=== PATIENT | female | born 1960 | race Hispanic/Latino ===

== ENCOUNTER → 2018-05-22 | Outpatient (CLI) | payer OTHER | END | disposition home or self-care (01) | LOC: OIH 14:09 | PROVIDERS: ATTEND Internal Medicine | DX: Z13.6 Encounter for screening for cardiovascular disorders (principal) | CPT/HCPCS: 75571 ==

== ENCOUNTER → 2022-01-15 | Outpatient (CLI) | payer OTHER ==
[2022-01-15 12:44] LABS: HEMOGLOBIN A1C 5.8 % (4.0-6.0)
[2022-01-15 12:58] LABS: CREATININE 0.6 mg/dL (0.5-1.5); POTASSIUM 3.7 mmol/L (3.5-5.1); TOTAL PROTEIN, SERUM 7.5 g/dL (6.0-8.3)
== END | disposition home or self-care (01) ==
LOC: LAB 10:26
PROVIDERS: ATTEND Physician Assistant
DX: I10 Essential (primary) hypertension (principal); E11.9 Type 2 diabetes mellitus without complications; E78.5 Hyperlipidemia, unspecified
CPT/HCPCS: 36415; 80053; 80061; 83036

== ENCOUNTER → 2022-01-27 | Outpatient (CLI) | payer OTHER | END | disposition home or self-care (01) | LOC: RAH 13:01 | PROVIDERS: ATTEND Internal Medicine | DX: Z12.31 Encounter for screening mammogram for malignant neoplasm of breast (principal) | CPT/HCPCS: 77067 ==

== ENCOUNTER 2022-02-11 07:25 | Day surgery (SDC) | payer OTHER ==
[2022-02-05 12:57] LABS: BASOPHILS % (AUTO) 0.5 % (0.0-5.0); EOSINOPHILS % (AUTO) 1.7 % (0.0-8.0); HEMATOCRIT 36.6 % (36-48); LYMPHOCYTES % (AUTO) 20.8 % (21.0-51.0); MEAN CORPUSCULAR HGB CONC 33.3 g/dL (32.0-36.0); MEAN CORPUSCULAR VOLUME 86.9 fL (79-99); MONOCYTES % (AUTO) 4.6 % (3.0-13.0); PLATELET COUNT (AUTO) 216 K/uL (130-400); RED BLOOD CELL COUNT(AUTO) 4.21 MIL/uL (4.00-5.50); RED CELL DISTRIBUTION WIDTH 14.2 % (11.0-15.5); WHITE BLOOD COUNT (AUTO) 7.5 K/uL (4.8-10.8)
[2022-02-05 13:09] LABS: CREATININE 0.6 mg/dL (0.5-1.5); POTASSIUM 3.9 mmol/L (3.5-5.1)
[2022-02-05 13:11] LABS: INR 0.98 (0.85-1.15); PROTHROMBIN TIME 10.7 SEC (9.6-11.6)
[2022-02-05 13:17] LABS: APPEARANCE,URINE CLEAR (CLEAR); BILIRUBIN,URINE NEGATIVE (NEGATIVE); COLOR,URINE LIGHT-YELLOW (YELLOW); GLUCOSE, URINE (UA) NEGATIVE (NEGATIVE); KETONES,URINE NEGATIVE (NEGATIVE); LEUKOCYTE ESTERASE ,URINE NEGATIVE Leu/uL (NEGATIVE); NITRATE,URINE NEGATIVE (NEGATIVE); OCCULT BLOOD,URINE SMALL (NEGATIVE); PH,URINE 5.5 (5.0-8.0); PROTEIN,URINE NEGATIVE (NEGATIVE); UROBILINOGEN,URINE 0.2 mg/dL (0.2-1.0)
[2022-02-05 13:24] LABS: BACTERIA,URINE RARE /HPF (None Seen); MUCUS,URINE RARE LPF (None Seen); SQUAMOUS EPITHELIAL CELL,UR FEW /HPF (0-2); WBC,URINE 0-1 /HPF (0-1)
[2022-02-10 09:29] VITALS: BP 105/63
[2022-02-11] VITALS (17 sets, daily range): BP systolic 100–149; BP diastolic 53–95
[~2022-02-11] VITALS: Ht 165.1 cm; Wt 91.2 kg
[~2022-02-11 07:25] MED LIST: ACET-2743 PO; AEC81 PO; AMLO-257 PO; ATOR10TA69 PO; BACL10TA PO; BUSP7.5T7 PO; CEFAZOLIN SODIUM 2 GM VIAL IVPB SCH; ERGO500093 PO; GENTAMICIN 80 MG/NS 100 ML PB 100 ML IV SCH; IBUP-2077 PO; LOSA100T58 PO; METO-391 PO; PANT40TA54 PO; PREG75CA75 PO; TIRZ5PEN SQ; TRAM50TA4 PO
[2022-02-11] MEDS ORDERED: 0.9%NACL 1000ML 1,000 ML IV ONE (07:29)
[2022-02-11] MEDS ORDERED: CEFAZOLIN SODIUM 1 GM VIAL ONE (08:39)
[2022-02-11] MEDS ORDERED: ESTROGENS,CONJUGATED 0.625 MG/GM 42.5 GM VAG CRM VG ONE (08:39)
[2022-02-11] MEDS ORDERED: PROPOFOL 10 MG/ML 20ML VIAL IV ONE (10:25)
[2022-02-11] MEDS ORDERED: LIDOCAINE PF 100MG/5ML (2%) SYRINGE 5ML ONE (10:25)
[2022-02-11] MEDS ORDERED: MIDAZOLAM HCL 1 MG/ML 2ML VIAL ONE (10:26)
[2022-02-11] MEDS ORDERED: ONDANSETRON 4MG INJ ONE (10:28)
[2022-02-11] MEDS ORDERED: SUCCINYLCHOLINE CHLORIDE 20 MG/ML 10 ML VIAL ONE (10:28)
[2022-02-11] MEDS ORDERED: FENTANYL CITRATE PF 50 MCG/1 ML 2ML VIAL ONE (10:29)
[2022-02-11] MEDS ORDERED: LIDOCAINE 1%-EPI 1:100,000 20 ML VIAL IJ SCH (11:00)
[2022-02-11] MEDS ORDERED: KETOROLAC 30MG VIAL (30MG/ML) ONE (11:06)
[2022-02-11] MEDS ORDERED: PHENYLEPHRINE HCL 10 MG/ML 1ML VIAL IV ONE (11:08)
[2022-02-11] MEDS ORDERED: TRAMADOL HCL 50 MG TABLET ONE (13:39)
[2022-02-11] MEDS ORDERED: TRAMADOL HCL 50 MG TABLET PO ONE (14:30)
== END 2022-02-11 14:40 | disposition home or self-care (01) ==
LOC: DAH 07:25
PROVIDERS: ATTEND Urology
DX: N39.46 Mixed incontinence (principal); Z20.822 Contact with and (suspected) exposure to COVID-19; I10 Essential (primary) hypertension; K21.9 Gastro-esophageal reflux disease without esophagitis; E11.9 Type 2 diabetes mellitus without complications; F32.A Depression, unspecified; G47.30 Sleep apnea, unspecified; E66.9 Obesity, unspecified; Z98.890 Other specified postprocedural states; Z90.710 Acquired absence of both cervix and uterus; Z90.49 Acquired absence of other specified parts of digestive tract; Z90.722 Acquired absence of ovaries, bilateral; Z79.82 Long term (current) use of aspirin; Z79.899 Other long term (current) drug therapy; Z79.01 Long term (current) use of anticoagulants; Z88.8 Allergy status to other drugs, medicaments and biological substances; Z83.3 Family history of diabetes mellitus
CPT/HCPCS: 80048; 85025; 85610; 85730; 87088; 87426; 81001; 36415; 71045; 93005; 57288; 82948 ×2; A6260; A4221; A4663; J7030 ×2; A4215 ×2; A4452; A4344; C1771; J3010; J0690; J3490; J0330; J2001; J2250; J2704; J2405; J1885; J2370; J1580; G0168; A4649; A4930; A4223; A4222; A4600

== ENCOUNTER → 2022-06-03 | Outpatient (CLI) | payer OTHER ==
[~2022-06-03] MED LIST changes: -CEFAZOLIN SODIUM 2 GM VIAL IVPB SCH; -GENTAMICIN 80 MG/NS 100 ML PB 100 ML IV SCH
== END | disposition home or self-care (01) ==
LOC: SHCH 15:12
PROVIDERS: ATTEND Internal Medicine Cardiovascular Disease
DX: R00.2 Palpitations (principal)
CPT/HCPCS: 93306

== ENCOUNTER → 2023-01-28 | Outpatient (CLI) | payer OTHER ==
[~2023-01-28] MED LIST changes: -LOSA100T58 PO; +LOSA100T59 PO; -PREG75CA75 PO; +PREG75CA76 PO
== END | disposition home or self-care (01) ==
LOC: RAH 09:08
PROVIDERS: ATTEND Internal Medicine
DX: Z12.31 Encounter for screening mammogram for malignant neoplasm of breast (principal)
CPT/HCPCS: 77067

== ENCOUNTER → 2023-02-01 | Outpatient (CLI) | payer OTHER ==
[~2023-02-01] MED LIST changes: +ONDA4TAB10 PO
[2023-02-01 21:54] VITALS: PULSE 75; RESP 12
[2023-02-01 22:23] VITALS: PULSE 73; RESP 12
[2023-02-01 23:06] VITALS: PULSE 75; RESP 12
[2023-02-01 23:32] VITALS: PULSE 69; RESP 12
== END | disposition home or self-care (01) ==
LOC: SLP 20:33
PROVIDERS: ATTEND Internal Medicine Cardiovascular Disease
DX: G47.33 Obstructive sleep apnea (adult) (pediatric) (principal)
CPT/HCPCS: 95810; 95811

== ENCOUNTER 2023-02-02 01:12 | Emergency (ER) | payer OTHER ==
[~2023-02-02] VITALS: Ht 165.1 cm; Wt 86.6 kg
[~2023-02-02 01:12] MED LIST changes: -ONDA4TAB10 PO
[2023-02-02 01:44] LABS: BASOPHILS # (AUTO) 0.02 K/uL (0.00-0.20); BASOPHILS % (AUTO) 0.2 % (0.0-5.0); EOSINOPHILS # (AUTO) 0.02 K/uL (0.00-0.70); EOSINOPHILS % (AUTO) 0.2 % (0.0-8.0); HEMATOCRIT 40.1 % (36-48); IMMATURE GRANULOCYTE ABSOLUTE 0.05 K/uL (0-1); LYMPHOCYTES # (AUTO) 1.2 K/uL (1.0-4.8); LYMPHOCYTES % (AUTO) 13.5 % (21.0-51.0); MEAN CORPUSCULAR HEMOGLOBIN 29.4 pg (27.0-33.0); MEAN CORPUSCULAR HGB CONC 33.2 g/dL (32.0-36.0); MEAN CORPUSCULAR VOLUME 88.5 fL (79-99); MONOCYTES # (AUTO) 0.3 K/uL (0.1-1.0); NEUTROPHILS # (AUTO) 7.5 K/uL (1.8-7.7); NEUTROPHILS % (AUTO) 82.5 % (40.0-77.0); PLATELET COUNT (AUTO) 216 K/uL (130-400); RED BLOOD CELL COUNT(AUTO) 4.53 MIL/uL (4.00-5.50); RED CELL DISTRIBUTION WIDTH 15.1 % (11.0-15.5); WHITE BLOOD COUNT (AUTO) 9.1 K/uL (4.8-10.8)
[2023-02-02 01:53] LABS: CREATININE 0.7 mg/dL (0.5-1.5); POTASSIUM 3.5 mmol/L (3.5-5.1)
[2023-02-02 01:58] LABS: BILIRUBIN,TOTAL 0.8 mg/dL (0.2-1.0); TOTAL PROTEIN, SERUM 7.9 g/dL (6.0-8.3)
[2023-02-02] MEDS ORDERED: ONDANSETRON 4MG INJ ONE (02:46)
[2023-02-02] MEDS ORDERED: ONDANSETRON 4MG INJ IVP ONE (03:00)
[2023-02-02 04:25] VITALS: BP 111/93; PULSE 93; RESP 18; O2SAT 98
[2023-02-02] MEDS ORDERED: 0.9% NACL 500ML IV.SOLN 500 ML IV ONE (05:30)
[2023-02-02] MEDS ORDERED: ONDA4TAB10 PO (05:34)
== END 2023-02-02 05:50 | disposition home or self-care (01) ==
LOC: EDH 01:12
DX: R11.2 Nausea with vomiting, unspecified (principal); R19.7 Diarrhea, unspecified; E86.0 Dehydration; E11.9 Type 2 diabetes mellitus without complications; I10 Essential (primary) hypertension; Z79.82 Long term (current) use of aspirin
CPT/HCPCS: 99283; 96374; 80053; 85025; 36415; J7040; J2405

== ENCOUNTER → 2023-04-10 | Outpatient (CLI) | payer OTHER ==
[~2023-04-10] MED LIST changes: +ONDA4TAB10 PO
[2023-04-10 21:56] VITALS: PULSE 72; RESP 20
[2023-04-10 22:30] VITALS: PULSE 76; RESP 16
[2023-04-10 23:00] VITALS: PULSE 68; RESP 14
[2023-04-10 23:30] VITALS: PULSE 70; RESP 16
[2023-04-11] VITALS (10 sets, daily range): PULSE 58–74; RESP 14–20
== END | disposition home or self-care (01) ==
LOC: SLP 20:38
PROVIDERS: ATTEND Internal Medicine Cardiovascular Disease
DX: G47.33 Obstructive sleep apnea (adult) (pediatric) (principal)
CPT/HCPCS: 95810

== ENCOUNTER → 2023-04-28 | Outpatient (CLI) | payer OTHER | END | disposition home or self-care (01) | LOC: RAH 11:41 | PROVIDERS: ATTEND Internal Medicine | DX: M47.816 Spondylosis without myelopathy or radiculopathy, lumbar region (principal); M54.50 Low back pain, unspecified | CPT/HCPCS: 72100 ==

== ENCOUNTER → 2023-06-13 | Outpatient (CLI) | payer OTHER ==
[2023-06-13 22:07] VITALS: PULSE 83; RESP 17
[2023-06-13 23:00] VITALS: PULSE 73; RESP 13
[2023-06-13 23:16] VITALS: PULSE 74; RESP 17
[2023-06-13 23:33] VITALS: PULSE 73; RESP 13
[2023-06-13 23:51] VITALS: PULSE 75; RESP 13
[2023-06-14] VITALS (12 sets, daily range): PULSE 7–78; RESP 9–12
== END | disposition home or self-care (01) ==
LOC: SLP 20:17
PROVIDERS: ATTEND Internal Medicine Cardiovascular Disease
DX: G47.33 Obstructive sleep apnea (adult) (pediatric) (principal)
CPT/HCPCS: 95811

== ENCOUNTER → 2024-06-05 | Outpatient (CLI) | payer OTHER ==
[~2024-06-05] MED LIST changes: +ONDA-243 PO; -ONDA4TAB10 PO
[2024-06-05] MEDS: REGADENOSON 0.4 MG/5 ML PF SYG IVP ONE (14:24)
--- NOTE | 2024-06-05 18:03 | HMCSR ---
APPROVED REPORT Height: 5 ft 5in Weight: 197 lbs TEST INDICATIONS Chest Pain The imaging protocol used to acquire images was Rest Tc-99m/stress Tc-99m 1 day Consent: The procedure was explained and understood by the patient. Informerd consent was witnessed Niraj Little RN First, low dose rest was performed then high dose stress. RESTING DATA: The resting ekg shows: NSR Rest SPECT myocardial perfusion imaging was performed in supine position 70 minutes following the int ravenous injection of 11.2 mCi of Tc-99 Sestamibi. Time of rest injection: 08:57: Date: 06/05/2024 Time of rest imagin:07: Date: 06/05/2024 PHARMACOLOGIC STRESS: Pharmacologic stress test was performed by injecting regadenoson 0.4 mg IV push followed by the intra venous injection of 32.5 mCi of Tc-99 Sestamibi. Time of stress injection: 10:33: Date: 06/05/2024 Time of stress imagin:59: Date: 06/05/2024 Heart Rate at time of stress injection: 67 bpm. Gated Stress SPECT was performed 86 minutes after stress injection. The images were gated to evaluate regional wall motion and calculate left ventricular ejection fracti on. STRESS DETAILS Reason for Termination: Infusion complete Stress Symptoms: Dyspnea; Chest tightness Max HR Achieved: 88 bpm % of APMHR Achieved: 56 Max Blood Pressure: 137/77 mmHg Stress ECG: NSR Conclusion No ischemia No infarct LV ejection fraction 66% Normal LV wall motion Normal LV size at rest and stress No increased lung uptake RV not visualized
== END | disposition home or self-care (01) ==
LOC: SHCH 08:14
PROVIDERS: ATTEND Internal Medicine Cardiovascular Disease
DX: R07.89 Other chest pain (principal); R06.00 Dyspnea, unspecified; E78.5 Hyperlipidemia, unspecified
CPT/HCPCS: 78452; 93017; J2785; A9500 ×2

== ENCOUNTER → 2024-10-02 | Outpatient (CLI) | payer OTHER | END | disposition home or self-care (01) | LOC: RAH 09:44 | PROVIDERS: ATTEND Internal Medicine | DX: Z12.31 Encounter for screening mammogram for malignant neoplasm of breast (principal) | CPT/HCPCS: 77067 ==

== ENCOUNTER → 2024-10-19 | Outpatient (CLI) | payer OTHER ==
--- NOTE | 2024-10-22 15:30 | HMCIMG ---
BILATERAL BREAST ULTRASOUND: Finding: Real-time examination of the both breasts demonstrates adjacent echotexture throughout both the breasts without evidence of focal solid or cystic masses. Benign-appearing bilateral axillary lymph nodes seen on the right measures 2.1 x 1.1 x 1.7 cm a second lymph node measuring 1.9 x 0.7 x 1.4 cm. The left breast and axillary region is a lymph node measuring 1.3 x 0.9 x 1.4 cm. Second axillary lymph node measuring 2.4 x 0.9 x 2.1 cm. IMPRESSION: Moderately dense breasts with no nodule seen. I would recommend annual mammography with tomography with bilateral breast sonogram. FINAL ASSESSMENT: ACR: BI-RAD- 2. Benign: Also a negative assessment; finding(s) benign abnormalities. Management: Routine mammography screening. Likelihood of Cancer: Essentially 0% likelihood of malignancy.
== END | disposition home or self-care (01) ==
LOC: RAH 10:53
PROVIDERS: ATTEND Internal Medicine
DX: R92.30 Dense breasts, unspecified (principal); R92.8 Other abnormal and inconclusive findings on diagnostic imaging of breast